=== PATIENT | male | born 1965 | race Caucasian/White ===

== ENCOUNTER 2016-05-17 21:37 | Emergency (ER) | payer BC, OTHER ==
[2016-05-17 21:59] VITALS: RESP 16; TEMP 98.1; O2SAT 94
--- NOTE | 2016-05-17 22:28 | EDPHY ---
H & P Stated Complaint: burning w/ urination, R flank pain, bladder "feels full" HPI/ROS: HPI CHIEF COMPLAINT: Dysuria, urinary frequency, right CVA pain HISTORY OF PRESENT ILLNESS: This patient very pleasant 50-year-old male, significant past medical history TIA prostatitis, presents to the emergency room by private vehicle for ongoing dysuria and urinary frequency and some mild right-sided CVA pain. No fever. No vomiting. Patient tells me he lives in [place] he is visiting his son here at [facility] had a history of a prostate infection in the past as well as urinary tract infection. He has seen a urologist for this. No history of kidney stones. He states that he had leftover Keflex and he has been taking Keflex for the past 4 days as he has had initial onset of symptoms of dysuria urinary frequency right CVA pain that started on Sunday night. He denies any gross blood in his urine or foul smell to his urine. Denies abdominal pain. Denies chills, rigors, fever, vomiting does admit to nausea. Patient concerned he may still have a urinary tract infection despite taking Keflex. Past Medical History: UTI, prostatitis, renal cyst, lipoma Past Surgical History: Denies significant surgical history Social History: Denies daily use of drugs alcohol tobacco products, lives in [place], works for [employer], son is a [facility] student visiting his son at [facility] today Family History: Noncontributory ROS REVIEW OF SYSTEMS: A comprehensive 10 point review of systems is otherwise negative aside from elements mentioned in the history of present illness. Exam Constitutional triage nursing summary reviewed, vital signs reviewed, awake/ alert. Eyes normal conjunctivae and sclera, EOMI, PERRLA. HENT normal inspection, atraumatic, moist mucus membranes, no epistaxis, neck supple/ no meningismus, no raccoon eyes. Respiratory clear to auscultation bilaterally, normal breath sounds, no respiratory distress, no wheezing. Cardiovascular rate normal, regular rhythm, no murmur, no edema, distal pulses normal. Gastrointestinal soft, non-tender, no rebound, no guarding, normal bowel sounds, no distension, no pulsatile mass. Genitourinary very small amount of right CVA pain. Musculoskeletal no midline vertebral tenderness, full range of motion, no calf swelling, no tenderness of extremities, no meningismus, good pulses, neurovascularly intact. Skin pink, warm, & dry, no rash, skin atraumatic. Neurologic awake, alert and oriented x 3, AAOx3, moves all 4 extremities equally, motor intact, sensory intact, CN II-XII intact, normal cerebellar, normal vision, normal speech. Psychiatric normal mood/affect. Heme/Lymph/Immune no lymphadenopathy. Differential Diagnosis: Includes but is not limited to in a particular order, UTI, cystitis, pyelonephritis, kidney stone, hydroureter, prostatitis Medical Decision Making: This patient had an IV established will receive a fluid bolus, will check basic blood work as well as urinalysis. Patient may need a CT scan of his kidney. Re-evaluation: CT scan of the abdomen pelvis without IV contrast The results of the study are negative for anything acute specifically normal appendix, no hydroureter, no evidence kidney stone The study was read by Dr. Bone I viewed the images myself on the PACS system. 2350: re-evaluation at this time patient is resting comfortably abdomen remained soft. Urinalysis unremarkable however has been taking Keflex for 5 days. I did send a urine culture. I will extend him out on Keflex. Also Pyridium. Patient understands return emergency room if there is worsening symptoms includes worsening abdominal pain, fever, vomiting, flank pain. He understands stay well-hydrated. CT scan is unrevealing. Blood work reviewed vital signs reviewed urinalysis reviewed. Source: Patient - Personal History Current Tetanus/Diphtheria Vaccine: Yes Current Tetanus Diphtheria and Acellular Pertussis (TDAP): Yes - Medical/Surgical History Hx Asthma: No Hx Chronic Respiratory Disease: No Hx Diabetes: No Hx Cardiac Disease: No Hx Renal Disease: No Hx Cirrhosis: No Hx Alcoholism: No Hx HIV/AIDS: No Hx Splenectomy or Spleen Trauma: No Other PMH: hx prostate infection - Social History Smoking Status: Never smoked Constitutional: Initial Vital Signs Temperature (C) 36.7 C 05/17/16 21:55 Heart Rate 68 05/17/16 21:55 Respiratory Rate 16 05/17/16 21:55 Blood Pressure 153/89 H 05/17/16 21:55 O2 Sat (%) 94 05/17/16 21:55 O2 Delivery Mode Room Air Allergies/Adverse Reactions: ciprofloxacin [From Cipro] Allergy (Verified 05/17/16 22:00) ciprofloxacin HCl [From Cipro] Allergy (Verified 05/17/16 22:00) levofloxacin [From Levaquin] Allergy (Verified 05/17/16 22:00) valdecoxib Allergy (Verified 05/17/16 22:00) Home Medications: Medication Instructions Recorded Cephalexin [Keflex] 500 mg PO Q6H #28 cap 05/17/16 [place] Carbonate 05/17/16 Phenazopyridine HCl [Pyridium] 200 mg PO TID #6 tab 05/17/16 Seroquel 05/17/16 Medical Decision Making - Data Points Laboratory Results: Laboratory Results 05/17/16 22:50 05/17/16 22:50 05/17/16 05/17/16 05/17/16 22:50 22:50 22:00 WBC 6.54 10^3/uL 10^3/uL (3.80-9.50) RBC 4.98 10^6/uL 10^6/uL (4.40-6.38) Hgb 15.5 g/dL g/dL (13.7-17.5) Hct 44.2 % % (40.0-51.0) MCV 88.8 fL fL (81.5-99.8) MCH 31.1 pg pg (27.9-34.1) MCHC 35.1 g/dL g/dL (32.4-36.7) RDW 11.3 % L % (11.5-15.2) Plt Count 229 10^3/uL 10^3/uL (150-400) MPV 10.1 fL fL (8.7-11.7) Neut % (Auto) 62.9 % % (39.3-74.2) Lymph % (Auto) 24.9 % % (15.0-45.0) Bertie % (Auto) 6.7 % % (4.5-13.0) Eos % (Auto) 4.1 % % (0.6-7.6) Baso % (Auto) 1.2 % % (0.3-1.7) Nucleat RBC Rel Count 0.0 % % (0.0-0.2) Absolute Neuts (auto) 4.11 10^3/uL 10^3/uL (1.70-6.50) Absolute Lymphs (auto) 1.63 10^3/uL 10^3/uL (1.00-3.00) Absolute Monos (auto) 0.44 10^3/uL 10^3/uL (0.30-0.80) Absolute Eos (auto) 0.27 10^3/uL 10^3/uL (0.03-0.40) Absolute Basos (auto) 0.08 10^3/uL 10^3/uL (0.02-0.10) Absolute Nucleated RBC 0.00 10^3/uL 10^3/uL (0-0.01) Immature Gran % 0.2 % % (0.0-1.1) Immature Gran # 0.01 10^3/uL 10^3/uL (0.00-0.10) Sodium 141 mEq/L mEq/L (134-144) Potassium 3.9 mEq/L mEq/L (3.5-5.2) Chloride 105 mEq/L mEq/L (97-110) Carbon Dioxide 28 mEq/l mEq/l (22-31) Anion Gap 8 mEq/L mEq/L (8-16) BUN 19 mg/dL mg/dL (7-23) Creatinine 1.3 mg/dL mg/dL (0.7-1.3) Estimated GFR 58 Glucose 92 mg/dL mg/dL (70-100) Calcium 9.4 mg/dL mg/dL (8.5-10.4) Total Bilirubin 0.6 mg/dL mg/dL (0.1-1.4) Conjugated Bilirubin 0.3 mg/dL mg/dL (0.0-0.5) Unconjugated Bilirubin 0.3 mg/dL mg/dL (0.0-1.1) AST 29 IU/L IU/L (17-59) ALT 37 IU/L IU/L (21-72) Alkaline Phosphatase 81 IU/L IU/L (38-126) Total Protein 7.1 g/dL g/dL (6.3-8.2) Albumin 4.4 g/dL g/dL (3.5-5.0) Lipase 236.0 IU/L IU/L (23-300) Urine Color COLORLESS Urine Appearance CLEAR Urine pH 6.0 (5.0-7.5) Ur Specific [place] 1.004 (1.002-1.030) Urine Protein NEGATIVE (NEGATIVE) Urine Ketones NEGATIVE (NEGATIVE) Urine Blood NEGATIVE (NEGATIVE) Urine Nitrate NEGATIVE (NEGATIVE) Urine Bilirubin NEGATIVE (NEGATIVE) Urine Urobilinogen NEGATIVE EU EU (0.2-1.0) Ur Leukocyte Esterase NEGATIVE (NEGATIVE) Ur Culture Indicated? NOT INDICATED (NI) Urine Glucose NEGATIVE (NEGATIVE) Medications Given: Discontinued Medications Sodium Chloride (Ns) 1,000 mls @ 0 mls/hr IV ONCE ONE PRN Reason: Wide Open Stop: 05/17/16 22:41 Last Admin: 05/17/16 22:52 Dose: 1,000 mls Departure - Departure Disposition: Home, Routine, Self-Care Clinical Impression: Flank pain Urinary tract infection Qualifiers: Urinary tract infection type: acute cystitis Hematuria presence: without hematuria Qualified Code(s): N30.00 - Acute cystitis without hematuria Condition: Good Instructions: Flank Pain (ED), Urinary Tract Infection in Men (ED) Additional Instructions: 1. Make sure to drink lots of fluids. 2. take Keflex as prescribed 3. I prescribed Pyridium which will turn your urine orange may help with pain. 4. Return to the emergency room if develops any worsening symptoms includes worsening pain, fever, vomiting. Referrals: AYESHA BOTELLO MD [Other] - As per Instructions Prescriptions: Cephalexin [Keflex] 500 mg PO Q6H #28 cap Phenazopyridine HCl [Pyridium] 200 mg PO TID #6 tab
[2016-05-17] MEDS ORDERED: NS 1,000 ML IV ONE (22:40)
[2016-05-17 22:52] LABS: COLOR COLORLESS; LEUKOCYTE ESTERASE,URINE NEGATIVE (NEGATIVE); NITRITE,URINE NEGATIVE (NEGATIVE)
[2016-05-17 23:08] LABS: ALANINE AMINOTRANSFERASE 37 IU/L (21-72); ALBUMIN 4.4 g/dL (3.5-5.0); ALKALINE PHOSPHATASE 81 IU/L (38-126); ANION GAP 8 mEq/L (8-16); ASPARTATE AMINOTRANSFERASE 29 IU/L (17-59); BILIRUBIN,TOTAL 0.6 mg/dL (0.1-1.4); BILIRUBIN-CONJUGATED 0.3 mg/dL (0.0-0.5); BILIRUBIN-UNCONJUGATED 0.3 mg/dL (0.0-1.1); CALCIUM 9.4 mg/dL (8.5-10.4); CARBON DIOXIDE 28 mEq/l (22-31); CHLORIDE 105 mEq/L (97-110); CREATININE 1.3 mg/dL (0.7-1.3); GLOMERULAR FILTRATION RATE 58; GLUCOSE 92 mg/dL (70-100); POTASSIUM 3.9 mEq/L (3.5-5.2); SODIUM 141 mEq/L (134-144); TOTAL PROTEIN 7.1 g/dL (6.3-8.2)
[2016-05-17 23:10] LABS: % IMMATURE GRANULYOCYTES 0.2 % (0.0-1.1); ABSOLUTE IMMATURE GRANULOCYTES 0.01 10^3/uL (0.00-0.10); ADD DIFF? NO; ADD MORPH? NO; ADD SCAN? NO; ATYPICAL LYMPHOCYTE FLAG 0 (0-99); FRAGMENT RBC FLAG 0 (0-99); HEMATOCRIT 44.2 % (40.0-51.0); HEMOGLOBIN 15.5 g/dL (13.7-17.5); LEFT SHIFT FLG 0 (0-99); LIPEMIA HEMOLYSIS FLAG 90 (0-99); MEAN CELL HEMOGLOBIN 31.1 pg (27.9-34.1); MEAN CELL HEMOGLOBIN CONCENTR. 35.1 g/dL (32.4-36.7); MEAN CELL VOLUME 88.8 fL (81.5-99.8); MEAN PLATELET VOLUME 10.1 fL (8.7-11.7); PLATELET CLUMPS FLAG 0 (0-99); PLATELET COUNT 229 10^3/uL (150-400); RED BLOOD CELL COUNT 4.98 10^6/uL (4.40-6.38); RED CELL DISTRIBUTION WIDTH 11.3 % (11.5-15.2)
[2016-05-18 00:02] VITALS: BP 144/87; PULSE 80
== END 2016-05-18 00:02 | disposition home or self-care (01) ==
DX: N30.00 Acute cystitis without hematuria (principal); B96.89 Other specified bacterial agents as the cause of diseases classified elsewhere

== ENCOUNTER 2016-05-19 14:59 | Emergency (ER) | payer BC ==
[2016-05-19 15:07] VITALS: RESP 16; TEMP 97.9
[2016-05-19 15:50] LABS: COLOR YELLOW; LEUKOCYTE ESTERASE,URINE NEGATIVE (NEGATIVE); NITRITE,URINE NEGATIVE (NEGATIVE)
--- NOTE | 2016-05-19 15:50 | EDPHY ---
H & P Time Seen by Provider: 05/19/16 15:19 HPI/ROS: HPI Body aches, right lower back pain, urinary frequency. 50-year-old male by private vehicle. The patient was seen on May [address] Christoph Liang in our emergency department with complaint of right-sided CVA tenderness, dysuria and increased frequency with urination. He does have a remote history of prostatitis which was apparently treated with fluoroquinolones. He reports he developed severe tendinopathy from Levaquin. He reports these recent symptoms of urinary frequency, dysuria and right-sided CVA discomfort have been present for about a week. He has been on Keflex. The Keflex was extended by Dr. Liang. He has been on Keflex now for 7 days. He had an extensive workup in our emergency department on May 21. All was unremarkable including CBC, CMP, lipase, urinalysis and a CT scan of his abdomen and pelvis. He states that yesterday he started feeling body aches all over in generalized malaise. He describes this as feeling fatigued and just achy all over. He reports that his urinary symptoms have improved although he still does have some increased frequency and mild dysuria. He has not had a fever. He denies any other complaints. He does have an appointment to see his urologist when he returns home to [place] on Sunday. His appointment is on Sunday. ROS: Constitutional: No fever, no chills. As above Eyes: No discharge. No changes in vision. ENT: No sore throat. No nasal congestion or rhinorrhea. Respiratory: No cough. No shortness of breath. Cardiac: No chest pain, no palpitations. Gastrointestinal: No abdominal pain, no vomiting, no diarrhea. Genitourinary: No hematuria. As above. Denies any purulent discharge or genital lesions. Musculoskeletal: No back pain. No neck pain. No myalgias or arthralgias. Skin: No rashes. Neurological: No headache. No focal weakness or altered sensation. Past medical history: Renal cyst, lipoma, prostatitis, urinary tract infection. Urologist is in [place]. Social history: . Visiting from [place]. Monogamous. Physical Exam: General Appearance: Alert, no distress. This patient is responding to questions appropriately and in full sentences. This patient appears well- hydrated and well-nourished. Eyes: Pupils equal and round no pallor or injection. No lid edema, erythema or injection. Respiratory: There are no retractions, lungs are clear to auscultation with good air movement bilaterally. Cardiovascular: Regular rate and rhythm. No murmur. Gastrointestinal: Abdomen is soft and nontender, no masses, bowel sounds normal. No focal tenderness at McBurney's point. No Chandra sign. Neurological: Motor sensory function is grossly intact. Cranial nerves are normal. Gait is normal. Skin: Warm and dry, no rashes. Musculoskeletal: Neck is supple and nontender. No CVA tenderness on palpation bilaterally. Right upper flank area lipoma. Extremities are symmetrical. All joints range without pain or impingement. Psychiatric: No agitation. No depression. Database: EKG: Imaging: Procedures: Emergency department course: After my evaluation, explained to the patient that we would recheck his urinalysis. His vital signs have been reviewed and are normal. I explained the plan would be if the urinalysis was normal he would be discharged and continued on his Keflex. He will then follow up with his urologist for further evaluation on Sunday. He agrees with this plan. His laboratory blood and urine results as well as CT results from May 17 were reviewed by myself. 4:00 p.m., patient re-evaluated. Resting comfortably at this time. Vital signs reviewed again are normal. Results of his urinalysis was were discussed. This study was normal him. He feels comfortable going home and I feel he is safe for discharge. He will continue on Keflex. I recommended ibuprofen as well as Tylenol for fever, myalgias and arthralgias. He will follow up with his urologist on Sunday in [place] as scheduled. Return to emergency department precautions were reviewed. All of his questions were answered. He was discharged in good condition. Differential Diagnosis: The differential diagnosis on this patient includes but is not limited to urinary tract infection, viral syndrome, prostatitis. This represents a partial list of diagnoses considered. These considerations are based on history , physical exam, past history, reassessment and diagnostic testing. Smoking Status: Never smoked Constitutional: Initial Vital Signs Temperature (C) 36.6 C 05/19/16 15:04 Heart Rate 69 05/19/16 15:04 Respiratory Rate 16 05/19/16 15:04 Blood Pressure 153/104 H 05/19/16 15:04 O2 Sat (%) 98 05/19/16 15:04 O2 Delivery Mode Room Air Allergies/Adverse Reactions: ciprofloxacin [From Cipro] Allergy (Verified 05/17/16 22:00) ciprofloxacin HCl [From Cipro] Allergy (Verified 05/17/16 22:00) levofloxacin [From Levaquin] Allergy (Verified 05/17/16 22:00) valdecoxib Allergy (Verified 05/17/16 22:00) Home Medications: Medication Instructions Recorded Cephalexin [Keflex] 500 mg PO Q6H #28 cap 05/17/16 [place] Carbonate 05/17/16 Phenazopyridine HCl [Pyridium] 200 mg PO TID #6 tab 05/17/16 Seroquel 05/17/16 Medical Decision Making - Data Points Laboratory Results: 05/19/16 15:15 Urine Color YELLOW Urine Appearance CLEAR Urine pH 5.0 (5.0-7.5) Ur Specific [place] 1.012 (1.002-1.030) Urine Protein NEGATIVE (NEGATIVE) Urine Ketones NEGATIVE (NEGATIVE) Urine Blood NEGATIVE (NEGATIVE) Urine Nitrate NEGATIVE (NEGATIVE) Urine Bilirubin NEGATIVE (NEGATIVE) Urine Urobilinogen NEGATIVE EU EU (0.2-1.0) Ur Leukocyte Esterase NEGATIVE (NEGATIVE) Urine RBC 1-3 /hpf /hpf (0-3) Urine WBC 1-3 /hpf /hpf (0-3) Ur Epithelial Cells TRACE /lpf /lpf (NONE-1+) Urine Mucus TRACE /lpf /lpf (NONE-1+) Ur Culture Indicated? NOT INDICATED (NI) Urine Glucose NEGATIVE (NEGATIVE) Departure - Departure Disposition: Home, Routine, Self-Care Clinical Impression: Malaise and fatigue, Dysuria, Possible viral syndrome Condition: Good Instructions: Dysuria (ED), Fatigue (ED) Additional Instructions: Read and follow provided instructions. Follow-up with your urologist, in [place], as scheduled on Sunday for re- evaluation and further management. Continue Keflex until seen by your urologist Return to the emergency department for worsening symptoms, fever, back pain, vomiting or other serious concerns.
[2016-05-19 15:52] LABS: MUCUS TRACE /lpf (NONE-1+)
[2016-05-19 16:16] VITALS: BP 141/83; PULSE 68; O2SAT 93
== END 2016-05-19 16:15 | disposition home or self-care (01) ==
DX: R53.81 Other malaise (principal); R53.83 Other fatigue; R30.0 Dysuria